=== PATIENT | female | born 1995 | race Hispanic/Latino ===

== ENCOUNTER 2018-12-20 08:31 | Outpatient (CLI) | payer OTHER ==
--- NOTE | 2018-12-20 09:21 | ULT ---
OB ULTRASOUND: HISTORY: anatomy. FINDINGS: A single live intrauterine gestation is seen, with measurements corresponding to an estimated gestati onal age of 20 weeks 4 days and an JACK of 05/05/2019. The estimated weight measures 360 g or 1 3 oz. measurements are as follows: BPD: 4.69 cm (20 weeks 2 days). HC: 18.21 cm (20 weeks 5 days). AC: 15.72 cm (21 weeks 0 days). FL: 3.25 cm (20 weeks 1 day). heart rate measures 142 beats per minute. The placenta is anteriorly located without evidence of placenta previa. GUNNAR measures 14.41 cm. Three-vessel cord, cord insertion, kidneys, bladder, four-chamber heart, lateral ventricles, ce rebellum, spine, lips/nose, and upper and lower extremities are visualized. No definite anomal ies are seen. IMPRESSION: Single live intrauterine of 20 weeks 4 days estimated gestational age and an estimated date of delivery of 05/05/2019. POS: [facility]
== END 2018-12-20 08:32 | disposition home or self-care (01) ==
LOC: BICULT 08:31
PROVIDERS: ATTEND Obstetrics & Gynecology
DX: Z34.82 Encounter for supervision of other normal pregnancy, second trimester (principal); Z3A.20 20 weeks gestation of pregnancy
CPT/HCPCS: 76805

== ENCOUNTER 2019-03-09 07:36 | Outpatient (CLI) | payer OTHER ==
--- NOTE | 2019-03-09 09:15 | ULT ---
[facility] History: growth Comparison: OB ultrasound December 20, 2018 Findings: Real-time grayscale, color, and spectral analysis of the gravid uterus was performed transa bdominal approach. The cervix is closed and measures approximately 5.4 cm in length. The placenta is anterior and the amniotic fluid is adequate. The average ultrasound age is 34 week 1 day with estimated date of delivery April 19, 2019. Estimated weight: 5 lbs. 1 oz., 95th percentile Biometry: Biparietal diameter: 8.37 cm, 33 week 5 day Head circumference: 31.42 cm, 35 week 2 day Abdominal circumference: 29.82 cm, 33 weeks 6 day Femur length: 6.48 cm, 33 week 4 day The presentation is breech. Adjacent to the urinary bladder is a cystic structure measuring 3.4 cm. Impression: 1. Single viable intrauterine with average ultrasound age 34 week 1 day with estimated date of delivery April 19, 2019. 2. Likely a large ovarian cyst adjacent to the urinary bladder measured at 3.4 cm, less likely uracha l cyst. Close follow-up is advised.
== END 2019-03-09 07:37 | disposition home or self-care (01) ==
LOC: BICULT 07:36
PROVIDERS: ATTEND Nurse Practitioner
DX: Z34.83 Encounter for supervision of other normal pregnancy, third trimester (principal); Z3A.34 34 weeks gestation of pregnancy
CPT/HCPCS: 76815